=== PATIENT | male | born 1955 | race Caucasian/White ===

== ENCOUNTER 2019-05-28 07:12 | Day surgery (SDC) | payer OTHER ==
[~2019-05-28] VITALS: Ht 175.3 cm; Wt 76.8 kg
[~2019-05-28 07:12] MED LIST: BUPR150ER PO; Bactrim Ds Tab1 EACH PO; Cleocin HCl150 MG PO; LOSA25 PO; OLAN5 PO; RISP2 PO; TRAZ50 PO
--- NOTE | 2019-05-28 08:01 | NUR ---
05/28/19 0801 Lucila Palmer History, Chart, Medications and Allergies reviewed before start of procedure. PATIENT CONFIRMS NPO STATUS AND AGREES WITH SCHEDULED PROCEDURE. MONITOR INTACT WITH CONTINUOUS PULSE OXIMETRY AND INTERMITTENT BP. O2 VIA N/C INTACT THROUGHOUT SEDATION/PROCEDURE. 3-LEAD EKG REVIEWED WITH PHYSICIAN PRIOR TO START OF PROCEDURE. PATIENT DETERMINED TO BE ASA APPROPRIATE FOR PROPOFOL SEDATION PRIOR TO START OF PROCEDURE BY DR. LANDERS.
== END 2019-05-28 09:01 | disposition home or self-care (01) ==
LOC: ORSCMMR 07:12 → ORD 08:00 → ORSCMMR 09:01
PROVIDERS: Internal Medicine Gastroenterology
PROC: 0DBN8ZX Excision of Sigmoid Colon, Via Natural or Artificial Opening Endoscopic, Diagnostic (ICD-10-PCS; principal; 2019-05-28 08:00)
PROC: 0DBH8ZX Excision of Cecum, Via Natural or Artificial Opening Endoscopic, Diagnostic (ICD-10-PCS; principal; 2019-05-28 08:00)
DX: Z12.11 Encounter for screening for malignant neoplasm of colon (principal); Z80.0 Family history of malignant neoplasm of digestive organs; D12.5 Benign neoplasm of sigmoid colon; D12.0 Benign neoplasm of cecum; I10 Essential (primary) hypertension; F20.0 Paranoid schizophrenia; Z79.891 Long term (current) use of opiate analgesic; Z79.899 Other long term (current) drug therapy
CPT/HCPCS: 88305; J2250; J2704; J7120